=== PATIENT | male | born 1985 | race Caucasian/White ===

== ENCOUNTER 2024-05-30 09:46 | Outpatient (REF) | payer OTHER, SELFPAY ==
--- NOTE | ~2024-05-30 | XR_ITS ---
CLINICAL HISTORY: M25.519 - Pain in unspecified shoulder 3 view left shoulder Comparison: None Findings: Normal congruency of the glenohumeral joint. AC joint intact No acromioclavicular joint arthrosis or undersurface spurs. No fractures or bony erosions. No greater tuberosity cysts. Normal bone mineralization and soft tissues. No radiopaque foreign body. Normal visualized left chest. Scoliosis. Impression: 1. No fracture, subluxations or dislocations left shoulder. This document has been electronically signed by: Marcus Reyes MD on 05/31/2024 10:53:13
== END 2024-05-30 09:47 | disposition home or self-care (01) ==
LOC: HO.HOSX 09:46
PROVIDERS: Visit Provider Physician Assistant
DX: M25.519 Pain in unspecified shoulder (principal)
CPT/HCPCS: 73030

== ENCOUNTER 2024-05-30 13:44 | Outpatient (AMB) | payer OTHER, SELFPAY ==
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
[2024-05-30 14:22] VITALS: BMI 28.4
== END 2024-05-30 14:36 | disposition home or self-care (01) ==
PROVIDERS: Visit Provider Physician Assistant
DX: M75.102 Unspecified rotator cuff tear or rupture of left shoulder, not specified as traumatic (principal)
CPT/HCPCS: 99204

== ENCOUNTER → 2024-05-30 13:50 | Outpatient (BNV) | payer OTHER, SELFPAY | PROVIDERS: Visit Provider Radiology Diagnostic Radiology | DX: M25.512 Pain in left shoulder (principal) | CPT/HCPCS: 73030 ==

== ENCOUNTER → 2024-06-19 18:59 | Outpatient (BNV) | payer OTHER, SELFPAY | PROVIDERS: PCP Internal Medicine; Visit Provider Radiology Diagnostic Radiology | DX: M19.012 Primary osteoarthritis, left shoulder (principal) | CPT/HCPCS: 73221 ==

== ENCOUNTER 2024-06-19 19:03 | Outpatient (REF) | payer OTHER, SELFPAY ==
--- NOTE | ~2024-06-19 | MR_ITS ---
EXAMINATION: MRI LEFT SHOULDER WITHOUT CONTRAST HISTORY: M75.102 - Unspecified rotator cuff tear or rupture of left shoulder, not... COMPARISON: Correlation is made with plain films of the left shoulder dated 05/30/2024. TECHNIQUE: Coronal T1, T2, and fat suppressed T2, axial fat suppressed proton density, and sagittal T2 weighted MR images of the left shoulder were obtained. FINDINGS: Bone Marrow: Bone marrow signal intensity is normal. Joint effusion: There is no glenohumeral joint effusion. Glenohumeral joint: The glenohumeral joint is maintained. AC joint: There is mild degenerative change of the AC joint with cartilage loss and subchondral marrow changes. Supraspinatus muscle/tendon: There is a tiny focus of increased T2 signal intensity at the bursal surface of the insertion of the supraspinatus tendon which could represent a partial bursal surface tear. No full-thickness tear is seen. Normal muscle bulk. Infraspinatus muscle/tendon: The infraspinatus tendon is intact. Normal muscle bulk. Teres minor muscle/tendon: The teres minor tendon is intact. Normal muscle bulk. Subscapularis muscle/tendon: The subscapularis tendon is intact. Normal muscle bulk. Biceps tendon: The biceps tendon is intact and normally located. Glenoid labrum: The glenoid labrum is grossly unremarkable in appearance, although evaluation is limited by lack of a joint effusion. 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 Possible tiny bursal surface tear of the distal supraspinatus tendon at its insertion. Electronically signed by: Francisco Richards MD 06/20/2024 10:04 AM EDT
== END 2024-06-19 19:04 | disposition home or self-care (01) ==
LOC: HO.MRI 19:03
PROVIDERS: PCP Internal Medicine; Visit Provider Physician Assistant
DX: M75.102 Unspecified rotator cuff tear or rupture of left shoulder, not specified as traumatic (principal)
CPT/HCPCS: 73221

== ENCOUNTER 2024-07-03 09:13 | Outpatient (AMB) | payer OTHER, SELFPAY ==
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
[2024-07-03 09:19] VITALS: BMI 28.4
== END 2024-07-03 09:32 | disposition home or self-care (01) ==
LOC: HO.HOS 09:13
PROVIDERS: PCP Internal Medicine; Visit Provider Physician Assistant
DX: M75.102 Unspecified rotator cuff tear or rupture of left shoulder, not specified as traumatic (principal)
CPT/HCPCS: 99214

== ENCOUNTER → 2024-07-03 09:13 | Outpatient (BNVA) | payer OTHER, SELFPAY | PROVIDERS: PCP Internal Medicine; Visit Provider Physician Assistant ==

== ENCOUNTER 2024-08-15 09:56 | Outpatient (AMB) | payer OTHER, SELFPAY ==
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
[2024-08-15 10:34] VITALS: BMI 28.4
== END 2024-08-15 11:03 | disposition home or self-care (01) ==
LOC: HO.HOS 09:56
PROVIDERS: PCP Internal Medicine; Visit Provider Physician Assistant
DX: M75.102 Unspecified rotator cuff tear or rupture of left shoulder, not specified as traumatic (principal)
CPT/HCPCS: 99213

== ENCOUNTER 2024-09-07 14:03 | Outpatient (AMB) | payer OTHER, SELFPAY ==
[2024-09-07 14:06] VITALS: BMI 28.4
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
== END 2024-09-07 14:49 | disposition home or self-care (01) ==
LOC: HO.HOS 14:03
PROVIDERS: PCP Internal Medicine; Visit Provider Orthopaedic Surgery
DX: M24.812 Other specific joint derangements of left shoulder, not elsewhere classified (principal)
CPT/HCPCS: 99214

== ENCOUNTER → 2024-09-07 14:03 | Outpatient (BNVA) | payer OTHER, SELFPAY | PROVIDERS: PCP Internal Medicine; Visit Provider Orthopaedic Surgery ==

== ENCOUNTER 2024-10-02 11:07 | Outpatient (AMB) | payer OTHER, SELFPAY ==
--- NOTE | 2024-10-02 11:08 | A.OFFVIS_ITS ---
Vital Signs 10/02/24 11:09 Height 6 ft 3 in Weight 224 lb BMI 28.0 BP 138/85 Blood Pressure Location Lt brachial Position Sitting Respiration 16 Pulse 99 Pulse Source Pulse Oximeter Pulse Oximetry (%) 98 Oxygen Delivery Method Room Air Intake Visit Reasons: LEFT GLENOHUMERAL JOINT INJECTION Training And Development Officer Required: No Business Development Assistant: Business Development Assistant Present Accompanied by: Ponce Perez Allergies No Known Allergies Allergy (Mild, Verified 10/02/24 11:10) N/A Medication List - Last Reconciled 10/02/24 by Salma Stockton LPN celecoxib (Celebrex) 200 mg PO BID 30 days HPI HPI LEFT GLENOHUMERAL JOINT INJECTION: Details: History of Present Illness The patient is a 39-year-old male presenting for a left glenohumeral shoulder injection for a potential SLAP tear. The injection is intended for both diagnostic and therapeutic purposes. The patient was referred by Dr. Whittaker for this procedure. He works in a manual labor job involving concrete pouring, which may impact his recovery time post- procedure. Procedure - Left glenohumeral injection: Informed consent was obtained. The patient was seated, and the left shoulder was prepped sterile with Chloroprep. A 21-gauge 80-mm echostim needle was used under ultrasound guidance to inject 5 cc of 0.25% ropivacaine mixed with 40 mg of Kenalog into the joint. The procedure was well tolerated with no pain on injection and no blood loss. [facility] Social History Alcohol intake: current Alcohol intake frequency: holidays/special occasions only Patient Tobacco Use Status: Never used Tobacco Current occupational status: employed Current occupation: Concret/ right hand dominant Assessment & Plan Assessment & Plan (1) SLAP (superior glenoid labrum lesion): Code(s): S43.439A - Superior glenoid labrum lesion of unspecified shoulder, initial encounter Category: Medical (2) Internal derangement of left shoulder: Code(s): M24.812 - Other specific joint derangements of left shoulder, not elsewhere classified Category: Medical Plan Plan - Follow-up care: The patient will follow up with either our clinic or Dr. Whittaker as needed. Patient was informed and verbally consented to the use of an ambient scribe for clinic note documentation during this visit. Discussion Notes I discussed with the patient the procedure of the left glenohumeral injection, including the potential risks and benefits. I explained that if the injection is painless, he can return to work immediately, but if there is soreness, it may take a few days to resolve. The patient was informed about the possibility of soreness due to the needle passing through unseen structures during the procedure. We also discussed the follow-up plan, which includes returning to our clinic or seeing Dr. Whittaker as needed. Patient Instructions - Monitor for soreness and avoid strenuous activities if discomfort occurs. - Follow up with our clinic or Dr. Whittaker as needed. Coding Level of Care Code Procedure Only Diagnoses SLAP (superior glenoid labrum lesion) S43.439A Internal derangement of left shoulder M24.812
[2024-10-02 11:09] VITALS: BP 138/85; PULSE 99; RESP 16; O2SAT 98; BMI 28.0
== END 2024-10-02 11:25 | disposition home or self-care (01) ==
LOC: HO.PMC 11:07
PROVIDERS: PCP Internal Medicine; Referring Provider Orthopaedic Surgery; Visit Provider Internal Medicine
DX: S43.439A Superior glenoid labrum lesion of unspecified shoulder, initial encounter (principal); M24.812 Other specific joint derangements of left shoulder, not elsewhere classified
CPT/HCPCS: 20611

== ENCOUNTER → 2024-10-02 11:07 | Outpatient (BNVA) | payer OTHER, SELFPAY | PROVIDERS: PCP Internal Medicine; Referring Provider Orthopaedic Surgery; Visit Provider Internal Medicine | DX: M24.812 Other specific joint derangements of left shoulder, not elsewhere classified (principal) | CPT/HCPCS: 20611; J2795; J3301 ==